=== PATIENT | male | born 1935 | race Caucasian/White ===

== ENCOUNTER 2016-06-29 19:17 | Emergency (ER) | payer MEDICARE, OTHER ==
[~2016-06-29] VITALS: Ht 185.4 cm; Wt 98.6 kg
[2016-06-29 19:21] VITALS: BP 155/91; PULSE 97; RESP 16; TEMP 98.2; O2SAT 97
[2016-06-29] MEDS ORDERED: COLC1CAP3 PO (19:38)
[2016-06-29] MEDS ORDERED: SODIUM CHLOR 0.9% 1000 ML INJ 1,000 ML IV SCH (20:06)
[2016-06-29 20:10] VITALS: O2SAT 97
[2016-06-29] MEDS ORDERED: ONDANSETRON HCL 4 MG/2 ML VIAL IVP ONE (20:15)
[2016-06-29] MEDS ORDERED: PANTOPRAZOLE SODIUM 40 MG VIAL IVP ONE (20:15)
[2016-06-29] MEDS ORDERED: ALUMINUM/MAGNESIUM/SIMETH 30 ML CUP PO ONE (20:15)
[2016-06-29] MEDS ORDERED: LIDOCAINE VISCOUS 2% SOLN 15 ML UDC PO ONE (20:15)
[2016-06-29] MEDS ORDERED: SODIUM CHLORIDE 0.9% FLUSH 10 ML FLUSH IV FLUSH PRN (20:15)
[2016-06-29] MEDS ORDERED: FAMOTIDINE 20 MG/2 ML VIAL IV PUSH ONE (20:15)
[2016-06-29 20:31] LABS: AUTOMATED NEUTROPHIL # 6.8 TH/MM3 (1.8-7.7); BASOPHIL # 0.1 TH/MM3 (0-0.2); BASOPHIL % 0.9 % (0.0-2.0); EOSINOPHIL # 0.8 TH/MM3 (0-0.4); EOSINOPHIL % 6.4 % (0.0-4.0); HEMATOCRIT 43.8 % (39.0-51.0); HEMO FLAGS DIFF FINAL; LYMPHOCYTE # 3.3 TH/MM3 (1.0-4.8); MEAN CELL VOLUME 92.6 FL (80.0-100.0); MEAN CORPUSCULAR HEMOGLOBIN 31.2 PG (27.0-34.0); MEAN CORPUSCULAR HGB CONC 33.8 % (32.0-36.0); MONO % 10.8 % (0.0-8.0); NEUT % 54.9 % (16.0-70.0); PLATELET COUNT 262 TH/MM3 (150-450); RED BLOOD COUNT 4.74 MIL/MM3 (4.50-5.90); RED CELL DISTRIBUTION WIDTH 12.6 % (11.6-17.2); WHITE BLOOD COUNT 12.3 TH/MM3 (4.0-11.0)
[2016-06-29 20:39] LABS: CHLORIDE 105 MEQ/L (98-107); POTASSIUM 3.7 MEQ/L (3.5-5.1); SODIUM (NA) 141 MEQ/L (136-145)
[2016-06-29 20:40] VITALS: BP 170/78; PULSE 82; RESP 20
[2016-06-29 20:43] LABS: ANION GAP 7 MEQ/L (5-15); BICARBONATE 28.6 MEQ/L (21.0-32.0); BLOOD UREA NITROGEN 17 MG/DL (7-18)
[2016-06-29] MEDS ORDERED: KETOROLAC TROMETHAMINE 60 MG/2 ML (IM) VIAL IVP ONE (20:45)
[2016-06-29] MEDS ORDERED: ONDANSETRON HCL 4 MG/2 ML VIAL IV ONE ×2 (20:45→23:00)
[2016-06-29 20:46] LABS: ALT (GPT) 18 U/L (12-78); AST (GOT) 9 U/L (15-37); GLOMERULAR FILTRATION RATE 53 ML/MIN (>89)
[2016-06-29 20:48] LABS: TOTAL BILIRUBIN ADULT 0.2 MG/DL (0.2-1.0)
[2016-06-29 20:49] LABS: ALKALINE PHOSPHATASE 58 U/L (45-117)
--- NOTE | 2016-06-29 21:03 | PD ---
HPI Chief Complaint: GI Complaint Time Seen by Provider: 19:56 Travel History International Travel<30 days: No Contact w/Intl Traveler<30days: No Traveled to known affect area: No History of Present Illness HPI The patient is a 80-year-old male that has had nausea without vomiting and without diarrhea since 4 PM today. The patient has been seeing a property controller who is been treating his right foot as possible gout. He was tried on a tapered course of prednisone without relief. He has been on colchicine now for 3 days. He denies any fever. He does have midline epigastric discomfort which appears to radiate to the right back. His pain is a 9/10. He states his pain is a pounding type pain. PFSH Past Medical History Gout: Yes Influenza Vaccination: Yes Past Surgical History Prostatectomy: Yes (PROSTATE CA WITH RADIATION) Social History Alcohol Use: No Tobacco Use: No Allergies-Medications (Allergen,Severity, Reaction): Coded Allergies: No Known Allergies (Unverified , 06/29/16) Reported Meds & Prescriptions Reported Meds & Active Scripts Active Reported Colchicine 0.6 Mg Cap 0.6 Mg PO BID Review of Systems Except as stated in HPI: all other systems reviewed are Neg Physical Exam Narrative GENERAL: The patient is alert, oriented 3 and slight apparent distress with his midline epigastric discomfort. His vital signs show pulse of 97 and blood pressure 155/91 but are otherwise normal. SKIN: Focused skin assessment warm/dry. HEAD: Atraumatic. Normocephalic. EYES: Pupils equal and round. No scleral icterus. No injection or drainage. ENT: No nasal bleeding or discharge. Mucous membranes pink and moist. NECK: Trachea midline. No JVD. CARDIOVASCULAR: Regular rate and rhythm. No murmur appreciated. RESPIRATORY: No accessory muscle use. Clear to auscultation. Breath sounds equal bilaterally. GASTROINTESTINAL: Abdomen soft, with tenderness in the midline epigastrium to direct palpation, nondistended. Hepatic and splenic margins not palpable. MUSCULOSKELETAL: No obvious deformities. No clubbing. No cyanosis. No edema. NEUROLOGICAL: Awake and alert. No obvious cranial nerve deficits. Motor grossly within normal limits. Normal speech. PSYCHIATRIC: Appropriate mood and affect; insight and judgment normal. Data Data Last Documented VS Vital Signs Date Time Temp Pulse Resp B/P Pulse Ox O2 Delivery O2 Flow Rate FiO2 06/29/16 21:52 17 06/29/16 21:14 60 158/74 97 Room Air 06/29/16 19:21 98.2 Orders Complete Blood Count With Diff (06/29/16 20:06) Comprehensive Metabolic Panel (06/29/16 20:06) Lipase (06/29/16 20:06) Urinalysis - C+S If Indicated (06/29/16 20:06) Iv Access Insert/Monitor (06/29/16 20:06) Ecg Monitoring (06/29/16 20:06) Oximetry (06/29/16 20:06) Ondansetron Inj (Zofran Inj) (06/29/16 20:15) Pantoprazole Inj (Protonix Inj) (06/29/16 20:15) Sodium Chlor 0.9% 1000 Ml Inj (Ns 1000 M (06/29/16 20:06) Sodium Chloride 0.9% Flush (Ns Flush) (06/29/16 20:15) Electrocardiogram (06/29/16 20:06) Famotidine Inj (Pepcid Inj) (06/29/16 20:15) Al-Mag Hy-Si 40-40-4 Mg/Ml Liq (Mag-Al P (06/29/16 20:15) Lidocaine 2% Viscous (Xylocaine 2% Visco (06/29/16 20:15) Ondansetron Inj (Zofran Inj) (06/29/16 20:45) Ketorolac Inj (Toradol Inj) (06/29/16 20:45) Labs Laboratory Tests Test 06/29/16 06/29/16 20:23 21:07 White Blood Count 12.3 TH/MM3 Red Blood Count 4.74 MIL/MM3 Hemoglobin 14.8 GM/DL Hematocrit 43.8 % Mean Corpuscular Volume 92.6 FL Mean Corpuscular Hemoglobin 31.2 PG Mean Corpuscular Hemoglobin 33.8 % Concent Red Cell Distribution Width 12.6 % Platelet Count 262 TH/MM3 Mean Platelet Volume 9.4 FL Neutrophils (%) (Auto) 54.9 % Lymphocytes (%) (Auto) 27.0 % Monocytes (%) (Auto) 10.8 % Eosinophils (%) (Auto) 6.4 % Basophils (%) (Auto) 0.9 % Neutrophils # (Auto) 6.8 TH/MM3 Lymphocytes # (Auto) 3.3 TH/MM3 Monocytes # (Auto) 1.3 TH/MM3 Eosinophils # (Auto) 0.8 TH/MM3 Basophils # (Auto) 0.1 TH/MM3 CBC Comment DIFF FINAL Differential Comment Sodium Level 141 MEQ/L Potassium Level 3.7 MEQ/L Chloride Level 105 MEQ/L Carbon Dioxide Level 28.6 MEQ/L Anion Gap 7 MEQ/L Blood Urea Nitrogen 17 MG/DL Creatinine 1.30 MG/DL Estimat Glomerular Filtration 53 ML/MIN Rate Random Glucose 125 MG/DL Calcium Level 9.0 MG/DL Total Bilirubin 0.2 MG/DL Aspartate Amino Transf 9 U/L (AST/SGOT) Alanine Aminotransferase 18 U/L (ALT/SGPT) Alkaline Phosphatase 58 U/L Total Protein 7.3 GM/DL Albumin 3.8 GM/DL Lipase 189 U/L Urine Color YELLOW Urine Turbidity CLEAR Urine pH 5.5 Urine Specific Una 1.024 Urine Protein NEG mg/dL Urine Glucose (UA) NEG mg/dL Urine Ketones NEG mg/dL Urine Occult Blood NEG Urine Nitrite NEG Urine Bilirubin NEG Urine Leukocyte Esterase NEG Urine WBC 0-2 /hpf Urine Squamous Epithelial 0-5 /hpf Cells Microscopic Urinalysis Comment CULT NOT INDICATED MDM Medical Decision Making Medical Screen Exam Complete: Yes Emergency Medical Condition: Yes Medical Record Reviewed: Yes Interpretation(s) The CBC shows a white count of 12,300 but is otherwise normal. The complete metabolic profile shows a GFR 53 but is otherwise normal. The lipase is normal. Differential Diagnosis GERD, ulcer pain, pancreatitis, electrolyte disorder, dehydration, colchicine side effect Narrative Course It is now 0900 and the patient's pain is only a 4/10. He still has nausea. He still has the radiation of pain to the back. It is now 10:31 PM and the patient feels much better, the nausea has resolved and the pain is resolved. Impression: GERD, colchicine side effect is possible but he took colchicine for 3 days before this occurred. Plan: The patient be given Zantac, Prilosec and Phenergan. Diagnosis Primary Impression: GERD (gastroesophageal reflux disease) Additional Instructions: The Zantac tablets twice daily and the Prilosec is once daily. Both of these cut down on your stomach acid. The Zofran is one tablet every 8 hours as needed for nausea. Follow-up next week with your primary care physician. Med/Other Pt SpecificInfo: Prescription(s) given Scripts Ondansetron (Zofran)8 Mg Tab8 Mg PO TID #30 TAB Ref 0 Prov:Marcelo Bustamante MD 06/29/16 Ranitidine (Zantac)150 Mg [id number] Mg PO BID #60 TAB Ref 0 Prov:Marcelo Bustamante MD 06/29/16 Omeprazole (Prilosec)20 Mg Cap20 Mg PO DAILY #30 CAP Ref 0 Prov:Marcelo Bustamante MD 06/29/16 Disposition: 01 DISCHARGE HOME Condition: Stable Marcelo Bustamante MD June 29, 2016 21:03
[2016-06-29 21:10] LABS: BLOOD, URINE NEG (NEG); GLUCOSE,URINE NEG (NEG); KETONE, URINE NEG (NEG); NITRITE,URINE NEG (NEG); PH, URINE 5.5 (5.0-8.5)
[2016-06-29 21:14] VITALS: BP 158/74; PULSE 60; RESP 18; O2SAT 97
[2016-06-29 21:17] LABS: URINE COLOR YELLOW (YELLW/STRAW)
[2016-06-29 21:23] LABS: COMMENT (UR) CULT NOT INDICATED; CULTURE IF INDICATED CULT NOT INDICATED; SQUAMOUS EPITHELIAL CELL URINE 0-5 /hpf (0-5); WBC, URINE 0-2 /hpf (0-5)
[2016-06-29 21:52] VITALS: RESP 17
[2016-06-29] MEDS ORDERED: ZOFR8TAB PO (22:34)
[2016-06-29] MEDS ORDERED: PRIL20CA9 PO (22:34)
[2016-06-29] MEDS ORDERED: ZANT150T2 PO (22:34)
[2016-06-29 23:29] VITALS: BP 139/68
--- NOTE | 2016-06-30 15:49 | EKG ---
Date Performed: 06/29/2016 Time Performed: 20:25:52 PTAGE: 80 years EKG: Sinus rhythm Right bundle branch block Abnormal ECG NO PREVIOUS TRACING DOCTOR: Susie Serra Interpretating Date/Time 06/30/2016 15:47:00
== END 2016-06-29 23:30 | disposition home or self-care (01) ==
LOC: PHED 19:17
DX: K21.9 Gastro-esophageal reflux disease without esophagitis (principal); M54.9 Dorsalgia, unspecified; R94.31 Abnormal electrocardiogram [ECG] [EKG]; M10.9 Gout, unspecified
CPT/HCPCS: 80053; 81001; 83690; 85025; 93005; 96361; 96374; 96375; 96376; 99284; C9113; J1885; J2405; J7030